=== PATIENT | male | born 1965 | race Caucasian/White ===

== ENCOUNTER → 2016-11-22 | Day surgery (SDC) | payer OTHER ==
[~2016-11-22] MED LIST: LOSARTAN POTASS50 MG PO
--- NOTE | ~2016-11-22 | OR ---
Unit #: [id number] #: [id number] Patient: DANK SCHWAB [id number] [address] [place], [place] [address] [id number] O MR#: [id number] NAME: DANK SCHWAB ROOM: Date of Procedure: 11/22/2016 Admission Date: 11/22/2016 Surgeon: Sameer Palacios M.D. : 1965 Attending Physician: Sameer Palacios M.D. Primary Care Physician: Andrea Caruso M.D. OPERATIVE REPORT PREOPERATIVE DIAGNOSIS Screening colonoscopy. POSTOPERATIVE DIAGNOSIS Screening colonoscopy. PROCEDURES PERFORMED 1. Colonoscopy to cecum. 2. Polypectomy with electrocautery snare at 50 cm and 30 cm with hemoclip placement at 30 cm. ANESTHESIA Monitored anesthesia care. 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 A small 3 to 4 mm polyp was excised at 50 cm with electrocautery snare with good hemostasis and a polyp was excised at 30 cm with electrocautery snare with good hemostasis, but it was not retrieved. A hemoclip was placed on that area to ensure hemostasis. SPECIMENS Sent to Pathology. COMPLICATIONS None apparent. CONDITION The patient tolerated the procedure well. INDICATIONS FOR PROCEDURE The patient is a 51-year-old white male, who presents at this time for his initial screening colonoscopy. DESCRIPTION OF PROCEDURE After obtaining informed consent, the patient was brought to the endoscopy suite and after adequate monitored anesthesia care, the colonoscope was placed through the anus and slowly advanced to the level of the cecum without difficulty and with the lumen always in view. The cecum was normal as was the ileocecal valve. There was scattered eagle-diverticular disease present throughout the colon. They were all very small and very shallow and not very numerous in any one area. Other than this, there was Unit #: [id number] #: [id number] Patient: DANK SCHWAB no abnormality seen in the ascending colon, hepatic flexure, transverse colon, splenic flexure, or proximal descending colon. In the mid descending colon at 50 cm, a 3 to 4 mm polyp was found. It was excised completely with the electrocautery snare, retrieved with a mucus trap, and sent to Pathology. At 30 cm, another 3 to 4 mm polyp was found. It was excised completely with electrocautery snare with good hemostasis, but was lost in the effluence, and was unable to be retrieved. It was completely removed. Although there was good hemostasis at the site, hemoclip was placed to ensure good hemostasis. The remaining portion of the sigmoid colon, rectosigmoid, and rectum were all within normal limits. On retroflexing in the rectum to the anorectal junction, the patient was found to have no significant abnormality. The scope was removed without difficulty. The patient went from the endoscopy suite to the recovery area in stable condition. RECOMMENDATIONS High-fiber diet, lots of liquids, tucks or wipes p.r.n. Diverticular sheet given. Call Saturday for pathology. Repeat colonoscopy in 5 years. Dictated by... Edgar Merritt/marco TD: 11/23/2016 05:37 JOB #: [id number] [facility] OPERATIVE REPORT Page 1 of 1 X Sameer Palacios MD X PROCEDURE OPERATIVE NOTE
== END | disposition home or self-care (01) ==
LOC: COPS 08:28
DX: Z12.11 Encounter for screening for malignant neoplasm of colon (principal); D12.6 Benign neoplasm of colon, unspecified; K57.30 Diverticulosis of large intestine without perforation or abscess without bleeding; I10 Essential (primary) hypertension; Z85.828 Personal history of other malignant neoplasm of skin; Z79.899 Other long term (current) drug therapy; Z98.890 Other specified postprocedural states; Z88.1 Allergy status to other antibiotic agents
CPT/HCPCS: 88305; J2250